=== PATIENT | male | born 1960 | race Caucasian/White ===

== ENCOUNTER 2019-08-14 23:49 | Emergency (ER) | payer OTHER, SELFPAY ==
[2019-08-14 23:50] VITALS: BP 177/108; PULSE 75; RESP 16; TEMP 36.9; O2SAT 97; BMI 37.8
--- NOTE | 2019-08-15 00:15 | RAD_ITS ---
STUDY: X-RAY - RIGHT HAND REASON FOR EXAM: Male, 58 years old. SPLINTER IN RT LATERAL 1ST DIGIT TECHNIQUE: 3 view(s) of the hand. COMPARISON: None. FINDINGS: Normal radiocarpal articulation. Normal distal radioulnar joint. Normal visualized carpal bones. Normal carpal articulations Normal carpometacarpal articulation of the thumb. Normal second through fifth carpometacarpal joints. Normal metacarpi. Normal metacarpophalangeal joint of the thumb. Normal interphalangeal joint of the thumb. Normal proximal and distal phalanges of the thumb. Normal metacarpophalangeal joints of the second through fifth fingers. Normal proximal and distal interphalangeal joints of the second through fifth fingers. Normal phalanges of the second through fifth fingers. The soft tissue structures are unremarkable. RAD/Hand Min 3 Views IMPRESSION: Normal x-ray examination of the hand. Electronically Signed: Ree Adan, at 1:31 EST Tel , Service support ,
--- NOTE | 2019-08-15 01:59 | ED.DEP ---
ED Disposition - Plan for ED Patient: Instructions: FOREIGN BODY, Soft Tissue [Not Removed] Prescriptions: Cephalexin [Keflex] 500 mg PO Q6 #40 capsule Referrals: Pepe Mo MD [Primary Care Provider] - Young Franz MD [STAFF PHYSICIAN] -
--- NOTE | 2019-08-15 02:13 | ED.DEP ---
ED Disposition - Plan for ED Patient: Instructions: FOREIGN BODY, Soft Tissue [Not Removed] Prescriptions: Cephalexin [Keflex] 500 mg PO Q6 #40 cap Prescription Printed Hydrocodone Bitart/Apap 5-325 [[place] 5MG-325MG] 1 tablet PO Q6H PRN PRN 3 Days #10 tablet PRN Reason: Pain Referrals: Young Franz MD [STAFF PHYSICIAN] - Pepe Mo MD [Primary Care Provider] -
[2019-08-15] MEDS: Cephalexin 250 MG Capsule 500 MG PO (02:20)
--- NOTE | 2019-08-15 02:21 | ED.DCSUM_ITS ---
- ER Visit Summary Date of Service: 08/15/19 Chief Complaint: Right thumb splinter History of Present Illness: The patient is a 58 M presenting with splinter to his right thumb. He was sanding wood and sustained a splinter injury to his right thumb. No other injuries. Last tetanus was approximately 4 years ago. Denies other complaints. Physical Examination: Vitals are stable. Patient is afebrile. Alert no acute distress. HEENT exam is unremarkable. Neck is supple. Lungs are clear and equal bilaterally. Heart is regular rate and rhythm. Extremities puncture to lateral right thumb. Tendon function normal. Normal cap refill. Skin is warm and dry. No focal neurologic deficit. Remainder of exam is unremarkable. Emergency Department Course and Treatment: Digital block was performed. Attempted splinter removal with splinter forceps. Splinter was partially removed. Incised with 11 blade and explored wound, probed for foreign body. Unable to visualize or palpate the foreign body. Wound was irrigated. He was given prescription for Keflex and [place]. Advised to follow-up with Dr. Franz. Advised return to ED if worsening complaints. Disposition: Discharge home Impression: Splinter right thumb, partial removal This note was generated with [employer] dictation software. It may contain incorrect words, spelling, and punctuation that were not noted in review of the chart prio r to signing ED Disposition - Plan for ED Patient: Instructions: FOREIGN BODY, Soft Tissue [Not Removed] Prescriptions: Cephalexin [Keflex] 500 mg PO Q6 #40 cap Prescription Printed Hydrocodone Bitart/Apap 5-325 [[place] 5MG-325MG] 1 tab PO Q6H PRN PRN 3 Days #10 tab PRN Reason: Pain Prescription Printed Referrals: Young Franz MD [STAFF PHYSICIAN] - Pepe Mo MD [Primary Care Provider] -
[2019-08-15 02:23] VITALS: RESP 14
== END 2019-08-15 02:24 | disposition home or self-care (01) ==
LOC: ED 08-15 00:19
PROVIDERS: Emergency Provider Emergency Medicine; Family Provider Internal Medicine; PCP Internal Medicine
DX: S60.351A Superficial foreign body of right thumb, initial encounter (principal); W45.8XXA Other foreign body or object entering through skin, initial encounter; Y93.89 Activity, other specified; Y92.9 Unspecified place or not applicable; Y99.9 Unspecified external cause status; I10 Essential (primary) hypertension; Z79.899 Other long term (current) drug therapy
CPT/HCPCS: 10120; 73130; 99283

== ENCOUNTER 2019-08-21 10:33 | Day surgery (SDC) | payer SELFPAY ==
[2019-08-18 16:21] VITALS: BMI 37.8
--- NOTE | 2019-08-20 19:58 | PCM.HP.BLA ---
History and Physical Date of Admission: 08/21/19 HISTORY OF PRESENT ILLNESS 58 year old man presents with an infected wooden foreign body right thumb that he sustained while sanding wood baseboard at home on 08/15/19. He went to the ED and the wooden foreign body was partially removed. Majority of it was still present. The area was cleansed, and he was discharged on Keflex. X-ray was done and no fracture was seen. Initially after the injury, he noted some redness surrounding the skin opening on the radial aspect which has improved since starting the Keflex, but is still persistent. He presents today for further evaluation and treatment. PAST MEDICAL HISTORY Arthritis Gout High blood pressure PAST SURGICAL HISTORY hernia repair ALLERGIES naproxen MEDICATIONS Cephalexin [Keflex] Lisinopril/Hydrochlorothiazide [Lisinopril-Hctz 20-12.5 mg Tab] glucosamine HCl turmeric FAMILY HISTORY Mother - Breast cancer, Hypertension, High cholesterol Father - Colon cancer, Diabetes, High cholesterol, Hypertension SOCIAL HISTORY Smoking Status: Never smoker alcohol intake: never substance use type: does not use REVIEW OF SYSTEMS General - Denies fever, fatigue, and weight loss. Eyes - Denies cataracts and glaucoma. ENT - Denies nasal congestion and sore throat. Endocrine - Denies excessive thirst and urination. Skin - Denies suspicious lesions and skin cancer. Has a wooden foreign body right thumb with some skin redness. Musculoskeletal - Has joint pain and joint stiffness. Denies weakness of muscles and joints, back pain, and arthritis. Neuro - Denies headaches. Cardiovascular - Denies chest pain, fatigue, and shortness of breath with exertion. Psych - Denies anxiety and depression. Respiratory - Denies chronic cough and shortness of breath. Has sleep apnea. Gastrointestinal - Denies nausea, vomiting, diarrhea, and constipation. Hematologic - Denies abnormal bruising and bleeding. Genitourinary - Denies hematuria and urinary frequency. PHYSICAL EXAMINATION General - Alert and Oriented. HEENT - PERRL. EOMI. Throat is clear. Neck - Supple and nontender. No cervical adenopathy. Lungs - Clear to auscultation. Heart - Regular rate and rhythm. Abdomen - Soft and nondistended. Extremities - FROM. No axillary adenopathy. Radial pulses are palpable. Flexion right thumb intact. No sensory deficits. There is a palpable foreign body right thumb entering at the radial aspect near IP joint and at the exit point there is nonviable skin from pressure from the wooden foreign body. The exit point is on the volar aspect just distal to the IP joint crease. Distance measures 3 cm. Some redness seen proximally at the entrance point radially. Mild tenderness to palpation. No purulent drainage seen. Fingers are warm with good capillary refill. Neuro - CN II-XII grossly intact. Psych - Normal mood and affect. ASSESSMENT 1. Retained infected wooden foreign body right thumb. 2. Cellulitis. 3. Open wound right thumb from retained infected wooden foreign body. 4. Injury at home. PLAN X-ray reviewed. Continue Keflex antibiotics. The retained foreign body needs to be removed in the operating room. It extends across the IP joint. With the redness present, I will need to open up the thumb from the entrance point to the exit point to make sure all of the retained foreign body has been removed. Will send some of the tissue to Microbiology for culture. A positive culture will necessitate antibiotic therapy. The wound may need to be left open and wound care started with Silver dressing changes daily. I doubt there is any injury to the flexor tendon or digital nerve. But if present will need repair. Depending on the healing process, if stiffness occurs, he may need OT for range of motion exercises, strengthening, and edema management. Surgery will be done under IV sedation and local digital tourniquet control on an outpatient basis. Patient was informed of the risks and complications of the procedure including alternatives to surgery. These were discussed with the patient personally. Patient voices understanding and wishes to proceed. Some of the risks and complications were included in a form from the [employer]. Some of the risks and complications that were discussed included but were not inclusive of failure to diagnose including symptom relief, pain, infection, numbness, stiffness, loss of digit, RSD (CRPS), need for further surgery, contracture, and wound healing problems. Will schedule the procedure in the next couple of days.
[2019-08-21 10:56] LABS: Hematocrit 45.7 % (40-54); Mean Corp Hgb Conc 32.8 g/dL (32-36); Mean Corpuscular Hgb 30.2 pg (27.0-32.0); Mean Platelet Vol. 9.7 fl (6.2-12.0); Platelet Count 184 K/mm3 (150-450); RBC Distribution Width CV 12.4 % (11.6-14.6); RBC Distribution Width SD 41.9 fl (35.1-43.9); Red Blood Count 4.97 M/mm3 (4.6-6.2); White Blood Count 6.2 K/mm3 (4.4-11.0)
[2019-08-21 10:58] VITALS: BP 134/79; PULSE 70; RESP 16; TEMP 36.7; O2SAT 96; BMI 37.5
[2019-08-21] MEDS: Lactated Ringers 1,000 ML 100 ML IV (11:09)
[2019-08-21 11:10] LABS: Anion Gap 2 (5-15); BUN 20 mg/dL (7-18); Calcium,Total 9.2 mg/dL (8.5-10.1); Chloride 109 mmol/L (98-107); Creatinine, Serum 1.11 mg/dL (0.70-1.30); EST Glomerular Filtration Rate 72 mL/min (>60); Est Glom Filt Rate - Afr Amer 87 mL/min (>60); Estimated Creatinine Clearance 76.32 ml/min; Glucose 114 mg/dL (74-106); Sodium Level 141 mmol/L (136-145)
--- NOTE | 2019-08-21 12:05 | SOF_PTH ---
PATIENT: FUNMI GRUBBS [place] [facility] [id number] AGE/SX: 58/M ROOM: RE08/21/[address]: Dr. Young Franz MD : 1960 BED: DIS: 08/21/2019 SPEC #: [id number] RECD: 08/24/19 07:27 STATUS: CHARLOTTE NEWTON #: [id number] JORGE: 08/21/19 12:[address]: Young Franz DEPT: SURGICAL PATHOLOGY RECD BY: Sarath Pina ENTERED: 08/24/19 08:58 SP TYPE: SOFT TISS OTHR DR: Dr. Pepe Mo MD Tissues: Thumb, NOS Procedures: Special Stain Group I Surgery Specimen Level III AFB Stain (control) GMS Stain (control) HEADER OPERATION: Surgical preparation, thumb with I & D PRE-OP DIAGNOSIS: Retained infected wooden foreign body right thumb; cellulitis TISSUE SUBMITTED: Right thumb debrided tissue MICROSCOPIC DIAGNOSIS Right thumb debrided tissue: Pieces of skin and underlying tissue with focal ulceration, acute and chronic inflammation and granulation tissue reaction. Special stains for acid fast bacilli and fungi are negative for organisms; matched controls are appropriate. MARIMAR:ernesto 08/25/19 MICROSCOPIC DESCRIPTION Slides are reviewed. GROSS DESCRIPTION Received in fixative is one container labeled with the patient's name and designated right thumb debrided tissue. The specimen consists of four variable sized pieces of skin and soft tissue measuring in aggregate 1 x 1 x 0.3 cm. Two larger pieces are bisected. Also present in the container are two needle-shaped pieces of wood measuring 0.8 x 1.5 cm in length and 0.1 cm in diameter. The entire soft tissue is submitted in one cassette. The pieces of foreign body are for gross identification only. / MARIMAR:ernesto 08/24/19 TC:2 CPT: 32719, 47158 x2
[2019-08-21] MEDS: Cefazolin 2 GM in 0.9% Normal Saline 100 ML IV (12:34)
[2019-08-21] MEDS: Mupirocin Ointment 22gm Tube 1 APPLIC (13:32)
--- NOTE | 2019-08-21 13:35 | OP.PCM_ITS ---
Report of Operation Date of Procedure: 08/21/19 Pre-Operative Diagnosis: 1. Retained infected wooden foreign body right thumb. 2. Cellulitis. 3. Injury at home. Post-Operative Diagnosis: Same. Surgery/Procedure Performed:: Surgical preparation right thumb with incision and drainage and excisional debridement open wounds with removal of retained infected wooden foreign body right thumb. Description of Surgical Findings:: 58 year old man presents with an infected wooden foreign body right thumb that he sustained while sanding wood baseboard at home on 08/15/19. He went to the ED and the wooden foreign body was partially removed. Majority of it was still present. The area was cleansed, and he was discharged on Keflex. X-ray was done and no fracture was seen. Initially after the injury, he noted some redness surrounding the skin opening on the radial aspect which has improved since starting the Keflex, but is still persistent. Patient was informed of the risks and complications of the procedure including alternatives to surgery. These were discussed with the patient personally. Patient voices understanding and wishes to proceed. Some of the risks and complications were included in a form from the [place] [employer]. Some of the risks and complications that were discussed included but were not inclusive of failure to diagnose including symptom relief, pain, infection, numbness, stiffness, loss of digit, RSD (CRPS), need for further surgery, contracture, and wound healing problems. Size of wound radial aspect right thumb - 0.8 x 0.7 cm. Size of wound volar aspect right thumb - 0.8 x 0.7 cm. Total tourniquet time - 32 minutes. family service assistant: None Type of Anesthesia:: Local MAC Specimen's removed: Retained infected wooden foreign body tissue right thumb to Pathology and Microbiology. Drains: None. Estimated Blood Loss (mL): 5 ml. Description of Procedure: Patient was taken to OR in supine position and was given IV sedation. The right hand was prepped and draped in the usual fashion. SCD's were placed for DVT prophylaxis. Perioperative antibiotics were given intravenously. The right thumb was infiltrated with xylocaine and epinephrine as a digital metacarpal block. After waiting 5 minutes for the anesthetic to take effect, I placed a digital tourniquet around the base of the right thumb. I made circular incisions around both wounds (radial aspect near the IP joint proximally and volar aspect just distal to the IP joint crease distally). Some fat necrosis was seen. No gross pus was seen. After making the incision, the wooden foreign body was seen. It was covered with exudate. I made an oblique incision to connect both wounds to examine the tract of the foreign body. Dissection was carried through the subcutaneous tissue was seen. Further dissection showed the radial digital nerve which was intact. The tract of the foreign body went underneath the radial digital nerve and over the flexor tendon sheath. No injury was noted to the flexor tendon. The edge of the tract extended more dorsally at ulnar edge of the flexor tendon sheath. The ulnar digital nerve was seen and was intact and was not involved with the foreign body. I explored the depth of the wound dorsally and no further foreign body was seen. The wounds were irrigated with saline. Tissue was sent to Microbiology for culture and to Pathology for analysis. He had been on Keflex preoperatively. Because of the exudate present, I will send him home on Augmentin. Since no pus was seen, will close the incision between both wound openings. The wound openings will not be closed and will be packed with Silver dressings to be done daily. The incision was closed primarily with 5-0 Nylon simple interrupted and vertical mattress interrupted sutures. The length of the suture closure was 1.5 cm. The dimensions of the wounds were 0.8 x 0.7 cm for each wound. The tourniquet was released after 32 minutes. Hemostasis was obtained with electrocautery and gauze compression. Silver dressings were applied into both wounds followed by 4 x4 gauze and 2 inch Aye wrap for compression. Patient tolerated the procedure well and was sent to PACU in satisfactory condition. Patient will be sent home on antibiotics and pain medication. He will keep his right hand elevated during the initial postoperative period. Patient will followup on Saturday for a dressing change and to instruct the patient on the Silver dressing changes. The sutures will be removed in 3 weeks. Grafts/Implants Used: None. - Complications None. - Admit VTE Documentation VTE Present on Admission: No VTE Mechan Device Prophylaxis: SCD's VTE Pharm Prophylaxis ordered?: No Code Visit Surgery Charges CPT - 85865 ICD-10 - S61.001A, S60.351A, M79.5, L03.011, Y93.E9 35981 S60.351A, M79.5, L03.011, S61.001A, Y93.E9
[2019-08-21 13:42] VITALS: BP 129/78; BP 134/79; PULSE 69; RESP 18; TEMP 36.3; O2SAT 98
[2019-08-21 13:45] VITALS: BP 132/75; BP 134/79; PULSE 68; RESP 16; O2SAT 98
[2019-08-21 13:50] VITALS: BP 134/79; BP 134/82; PULSE 68; RESP 16; O2SAT 97
--- NOTE | 2019-08-21 13:51 | DCINST_ITS ---
You will use the following diet at home:: No restrictions Discharge Activity: May not drive while taking narcotic pain medications., May Shower - wear plastic bag over right hand when showering., - - elevate right hand. no heavy lifting. May shower in (days): 1 - wear plastic bag over right hand when showering. May resume sexual activity in: No Restrictions Weight Bearing Status: Weight bearing as tolerated Lifting Restrictions: 20 lbs. Keep extremity elevated above heart level: Right Arm Call your doctor if your incision/area has: Continuous Slow Oozing, Sudden Increased Bleeding, Increased Pain/ Swelling, Increased Redness, Foul Smelling Discharge, Swelling at the incision site Call your doctor if you observe: Fever of 101 or Higher, Coldness, Increased Pain, Shortness of breath, Chest pain, Calf discomfort, Uncontrolled pain Suture Line Care: - - after operative dressing is removed in office, apply antibiotic ointment to suture line daily and proceed with Silver dressing changes daily to the wounds. Change Dressing in (Days):: 3 - will change in the office. Cleanse incision/area with: - - wear plastic bag over right hand when showering. Allergies/Adverse Reactions: Allergies naproxen Adverse Reaction (Verified 08/21/19 10:57) Itching Medications to take at Discharge Lisinopril/Hydrochlorothiazide [Lisinopril-Hctz 20-12.5 mg Tab] 1 ea PO DAILY 08/15/19 glucosamine HCl 1,500 mg tablet 1,500 mg PO DAILY 08/18/19 turmeric 400 mg capsule 400 mg PO DAILY cap 08/18/19 Amoxicillin/Potassium Clav [Augmentin 875-125 Tablet] 1 ea PO BID #30 tab 08/21/19 Oxycodone HCl/Acetaminophen [Percocet 5/325] 1 tablet PO Q4H PRN PRN 7 Days #40 tablet 08/21/19 The following prescriptions were given: Amoxicillin/Potassium Clav [Augmentin 875-125 Tablet] 1 ea PO BID #30 tab Transmission Status: [id number] Oxycodone HCl/Acetaminophen [Percocet 5/325] 1 tablet PO Q4H PRN PRN 7 Days #40 tablet PRN Reason: Pain Score 4-5/10 Transmission Status: Sent to [id number] Orders to be completed after discharge: 12 Lead EKG [CVS] Time Frame: 08/19/19, Facility: [facility], Location: Cardiovascular Services Basic Metabolic Profile (BMP) Time Frame: 08/19/19, Facility: [facility], Location: Laboratory CBC-Complete Blood Cnt No Diff Time Frame: 08/19/19, Facility: [facility], Location: Laboratory Primary Care Physician: Pepe Mo MD [Primary Care Provider] - Test Results: Test results from this visit will be discussed in further detail at your follow- up appointment, if applicable. Please Follow Up With: Young Franz MD When: saturday08/24/19. call [phone] for appt. Proposed Discharge Date: 08/21/19
[2019-08-21 13:57] VITALS: BP 131/81; BP 134/79; PULSE 66; RESP 16; TEMP 36.3; O2SAT 95
[2019-08-21 14:24] VITALS: BP 134/79
--- NOTE | 2019-08-21 14:25 | EKG12_ITS ---
Test Reason : PRE OP Blood Pressure : / mmHG Vent. Rate : 068 BPM Atrial Rate : 068 BPM P-R Int : 144 ms QRS Dur : 150 ms QT Int : 446 ms P-R-T Axes : 033 -73 006 degrees QTc Int : 474 ms Normal sinus rhythm Right bundle branch block Left anterior fascicular block Bifascicular block Abnormal ECG Confirmed by NATHANAEL BEAR, MONSE ([id number]), image editor SHARAD KENT ([id number]) on 08/24/2019 10:38:22 AM Referred By: Young Franz Confirmed By:MONSE HUFFMAN MD
== END 2019-08-21 14:33 | disposition home or self-care (01) ==
LOC: SDC 10:34 → AC 10:34
PROVIDERS: Family Provider Internal Medicine; PCP Internal Medicine; Referring Provider Surgery; Visit Provider Surgery
PROC: (CPT 15004; principal; 2019-08-21 11:55)
DX: S61.001A Unspecified open wound of right thumb without damage to nail, initial encounter (principal); S60.351A Superficial foreign body of right thumb, initial encounter; M79.5 Residual foreign body in soft tissue; L03.011 Cellulitis of right finger; Y93.E9 Activity, other interior property and clothing maintenance; Y92.009 Unspecified place in unspecified non-institutional (private) residence as the place of occurrence of the external cause; M19.90 Unspecified osteoarthritis, unspecified site; M10.9 Gout, unspecified; I45.10 Unspecified right bundle-branch block; I10 Essential (primary) hypertension; Z79.899 Other long term (current) drug therapy; Z82.49 Family history of ischemic heart disease and other diseases of the circulatory system; Z88.6 Allergy status to analgesic agent
CPT/HCPCS: 01810; 15004; 20525; 36415; 80048; 85027; 87070; 87075; 87077; 87102; 87186; 87205; 87206; 88304; 88305; 88312; 93005; J7120; J2405

== ENCOUNTER → 2019-11-04 08:48 | Outpatient (CLI) | payer SELFPAY ==
[2019-09-15 08:32] VITALS: BMI 37.5
[2019-11-04 10:33] LABS: ALB/GLOB Ratio 1.1 RATIO (0.9-2.4); AST(SGOT) 23 U/L (15-37); Alanine Aminotransfer ALT/SGPT 53 U/L (16-61); Albumin, Serum 3.5 g/dL (3.2-5.0); Alkaline Phosphatase 49 U/L (45-117); Anion Gap 7 (5-15); BUN 24 mg/dL (7-18); Calcium,Total 8.2 mg/dL (8.5-10.1); Chloride 102 mmol/L (98-107); Creatinine, Serum 1.09 mg/dL (0.70-1.30); EST Glomerular Filtration Rate 73 mL/min (>60); Est Glom Filt Rate - Afr Amer 89 mL/min (>60); Globulin 3.2 g/dL (2.2-4.2); Glucose 136 mg/dL (74-106); Potassium 3.6 mmol/L (3.5-5.1); Protein, Total 6.7 g/dL (6.4-8.2); Sodium Level 140 mmol/L (136-145)
== END ==
PROVIDERS: PCP Internal Medicine; Referring Provider Family Medicine; Visit Provider Family Medicine
DX: I10 Essential (primary) hypertension (principal)
CPT/HCPCS: 36415; 80053

== ENCOUNTER → 2019-12-07 16:10 | Outpatient (CLI) | payer SELFPAY ==
[2019-09-15 08:32] VITALS: BMI 37.5
== END ==
PROVIDERS: PCP Family Medicine; Referring Provider Family Medicine; Visit Provider Family Medicine
DX: M10.9 Gout, unspecified (principal)
CPT/HCPCS: 36415; 84550

== ENCOUNTER → 2019-12-28 07:56 | Outpatient (CLI) | payer SELFPAY ==
[2019-09-15 08:32] VITALS: BMI 37.5
--- NOTE | 2019-12-28 08:06 | US_ITS ---
STUDY: THYROID ULTRASOUND REASON FOR EXAM: Male, 59 years old. NODULE TECHNIQUE: Ultrasound evaluation of the thyroid was performed with real-time and static beltran-scale imaging. COMPARISON: None. FINDINGS: RIGHT LOBE: The right lobe of the thyroid gland measures 4.2 x 1.8 x 1.9 cm. There is a homogeneous echotexture. 2 separate solid/cystic nodules noted. Larger measures 1.4 x 0.9 x 1.1 cm. There is a solid hypoechoic inferior pole nodule measuring 1.0 x 0.7 x 0.9 cm. LEFT LOBE: The left lobe of the thyroid gland measures 4.2 x 1.7 x 1.7 cm. There is a homogeneous echotexture. There is a hypoechoic solid 0.8 x 0.7 x 0.6 cm nodule in the lower pole an isoechoic 0.8 x 0.9 x 0.6 cm nodule in the midportion. ISTHMUS: The isthmus measures 0.5 cm. There is a partially calcified 0.9 x 0.8 x 0.7 cm nodule in the left isthmus. The regional lymph nodes are normal. US/Thyroid IMPRESSION: Normal sized homogeneous thyroid gland with bilateral solid hypoechoic nodules. Recommend further evaluation with thyroid uptake study to assess the characteristics of the solid nodules. Sonography cannot distinguish between benign and aggressive nodules. Electronically Signed: Chris Wadsworth MD at 17:45 EDT , Service support ,
== END ==
PROVIDERS: PCP Family Medicine; Referring Provider Family Medicine; Visit Provider Family Medicine
DX: E04.2 Nontoxic multinodular goiter (principal)
CPT/HCPCS: 76536

== ENCOUNTER → 2020-01-13 11:01 | Outpatient (CLI) | payer SELFPAY ==
--- NOTE | 2020-01-13 | ASPS_PTH ---
PATIENT: FUNMI GRUBBS LOC: [facility] U#:[id number] AGE/SX: 64/M ROOM: RE01/13/[address]: Dr. Dwayne Back MD : 1960 BED: DIS: SPEC #: [id number] RECD: 01/13/20 14:03 STATUS: CHARLOTTE NEWTON #: [id number] JORGE: 01/13/20 00:[address]: Dwayne Back DEPT: CYTOLOGY RECD BY: Edvin Nichole Tissues: A - Thyroid gland, NOS B - Thyroid gland, NOS Procedures: Special Stain Group II Cytology Other HEADER OPERATION: Ultrasound-guided fine needle aspiration bilateral thyroid PRE-OP DIAGNOSIS: Multinodular goiter TISSUE SUBMITTED: A - Right thyroid slides x11, B - Left thyroid slides x10 DIAGNOSIS CYTOLOGY A. Fine needle aspiration, right thyroid nodule (smears): Adequate for evaluation. Consistent with benign follicular/colloid nodule. B. Fine needle aspiration, left thyroid nodule (smears): Adequate for evaluation. Consistent with benign follicular/colloid nodule. AM:ernesto 01/14/20 CYTOLOGY STUDY Slides are reviewed. CYTOLOGY GROSS A - Received are 11 smears labeled with the patient's name and designated per the requisition as right thyroid. Submitted for staining. B - Received are 10 smears labeled with the patient's name and designated per the requisition as left thyroid. Submitted for staining. / ernesto 01/13/20 TC:5 CPT: 25501 x2
[2020-01-13 08:03] VITALS: BMI 37.5
== END ==
PROVIDERS: PCP Family Medicine; Visit Provider Family Medicine
DX: E04.2 Nontoxic multinodular goiter (principal)
CPT/HCPCS: 88161; 88313

== ENCOUNTER → 2020-01-18 10:42 | Outpatient (CLI) | payer SELFPAY ==
[2020-01-13 08:03] VITALS: BMI 37.5
--- NOTE | 2020-01-18 10:49 | VDLE_ITS ---
Reason For Study: Swelling RIGHT LEFT GSV is normal. CFV is compressible, spontaneous, phasic, CFV is compressible, spontaneous, phasic, competent, and demonstrates normal competent and demonstrates normal augmentation. augmentation. FV is compressible, spontaneous, phasic, competent and demonstrates normal augmentation. Acute deep vein thrombosis is noted in the PopV, noted extending in to distal FV, T/PTrunk, PTV, PeroV, SoleusV. Procedure Exam performed in department. A preliminary report was called and/or faxed to [facility]. Interpretation Summary Acute deep vein thrombosis is noted in the distal right femoral vein. Acute deep vein thrombosis is noted in the right popliteal vein. Acute deep vein thrombosis is noted in the right tibio-peroneal trunk. Acute deep vein thrombosis is noted in the right posterior tibial vein. Acute deep vein thrombosis is noted in the right peroneal vein. Acute deep vein thrombosis is noted in the right soleus vein. The remainder of the right lower extremity deep venous system is patent and compressible. The right great saphenous vein is patent and compressible. Ordering Physician: Oumou Onofre Referring Physician: Dwayne Back Performed By: Lalitha Grant RVT
== END ==
PROVIDERS: PCP Family Medicine; Referring Provider Nurse Practitioner Adult Health; Visit Provider Nurse Practitioner Adult Health
DX: M79.89 Other specified soft tissue disorders (principal)
CPT/HCPCS: 93971

== ENCOUNTER → 2020-04-19 08:12 | Outpatient (CLI) | payer SELFPAY ==
[2020-01-13 08:03] VITALS: BMI 37.5
[2020-04-19 10:33] LABS: Hemoglobin A1c 6.6 % (3.8-5.6)
[2020-04-19 10:37] LABS: Anion Gap 6 (5-15); BUN 18 mg/dL (7-18); Calcium,Total 8.6 mg/dL (8.5-10.1); Chloride 104 mmol/L (98-107); Creatinine, Serum 1.06 mg/dL (0.70-1.30); EST Glomerular Filtration Rate 76 mL/min (>60); Est Glom Filt Rate - Afr Amer 92 mL/min (>60); Glucose 152 mg/dL (74-106); Sodium Level 141 mmol/L (136-145)
== END ==
PROVIDERS: PCP Family Medicine; Referring Provider Family Medicine; Visit Provider Family Medicine
DX: I10 Essential (primary) hypertension (principal); R73.02 Impaired glucose tolerance (oral)
CPT/HCPCS: 36415; 80048; 83036

== ENCOUNTER → 2020-05-09 17:52 | Outpatient (CLI) | payer SELFPAY ==
[2020-01-13 08:03] VITALS: BMI 37.5
[2020-05-09 18:23] LABS: Source- Body Fluid SYNOVIAL
[2020-05-09 18:24] LABS: Body Fluid QC Type(s) BF2Q
[2020-05-10 15:36] LABS: Pathologist Review Reviewed
== END ==
PROVIDERS: Visit Provider Podiatrist
DX: M10.9 Gout, unspecified (principal)
CPT/HCPCS: 89060

== ENCOUNTER → 2020-08-04 08:48 | Outpatient (CLI) | payer SELFPAY ==
[2020-01-13 08:03] VITALS: BMI 37.5
[2020-08-04 10:15] LABS: Absolute Lymphocyte Count 1.59 X10^3/uL (0.83-4.51); Absolute Neutrophil Count 3.5 X10^3/uL (2.0-7.7); Basophil# 0.03 X10^3/uL; Basophil% 0.5 % (0-1); Eosinophil# 0.12 X10^3/uL; Eosinophils% 2.1 % (0-5); Hematocrit 41.8 % (40-54); Hemoglobin 13.6 g/dL (13.0-16.5); Lymphocyte # 1.59 X10^3/ul (4.0); Lymphocyte % 27.9 % (19-41); Mean Corp Hgb Conc 32.5 g/dL (32-36); Mean Corpuscular Hgb 29.5 pg (27.0-32.0); Mean Corpuscular Volume 90.7 fL (80-94); Mean Platelet Vol. 10.3 fl (6.2-12.0); Monocyte# 0.47 X10^3/uL; Monocyte% 8.2 % (0-10); NRBC Flagged by Analyzer 0 % (0-5); Neutrophil # 3.46 X10^3/uL (2.7-7.7); Neutrophil % 60.8 % (47-70); Platelet Count 199 K/mm3 (150-450); RBC Distribution Width CV 12.5 % (11.6-14.6); RBC Distribution Width SD 41.2 fl (35.1-43.9); Red Blood Count 4.61 M/mm3 (4.6-6.2); White Blood Count 5.7 K/mm3 (4.4-11.0)
[2020-08-04 10:28] LABS: ALB/GLOB Ratio 1.2 RATIO (0.9-2.4); AST(SGOT) 24 U/L (15-37); Alanine Aminotransfer ALT/SGPT 53 U/L (16-61); Albumin, Serum 3.6 g/dL (3.2-5.0); Alkaline Phosphatase 55 U/L (45-117); Anion Gap 5 (5-15); BUN 21 mg/dL (7-18); Calcium,Total 8.5 mg/dL (8.5-10.1); Chloride 106 mmol/L (98-107); Cholesterol 124 mg/dL (200); Creatinine, Serum 1.05 mg/dL (0.70-1.30); EST Glomerular Filtration Rate 76 mL/min (>60); Est Glom Filt Rate - Afr Amer 92 mL/min (>60); Globulin 3.1 g/dL (2.2-4.2); Glucose 148 mg/dL (74-106); High Density Lipoprotein 47 mg/dL; Potassium 3.6 mmol/L (3.5-5.1); Protein, Total 6.7 g/dL (6.4-8.2); Sodium Level 140 mmol/L (136-145); Triglycerides 91 mg/dL; Very Low Density Lipoprotein 18 mg/dL (5-40)
[2020-08-04 10:51] LABS: Hemoglobin A1c 5.7 % (3.8-5.6)
== END ==
PROVIDERS: PCP Family Medicine; Referring Provider Family Medicine; Visit Provider Family Medicine
DX: I10 Essential (primary) hypertension (principal); E11.9 Type 2 diabetes mellitus without complications
CPT/HCPCS: 36415; 80053; 80061; 83036; 85025

== ENCOUNTER → 2020-08-09 15:07 | Outpatient (CLI) | payer SELFPAY ==
[2020-01-13 08:03] VITALS: BMI 37.5
--- NOTE | 2020-08-09 15:09 | RAD_ITS ---
STUDY: X-RAY - RIGHT KNEE REASON FOR EXAM: Male, 59 years old. arthritis, bilateral knee pain TECHNIQUE: 3 view(s) of the knee. COMPARISON: None. FINDINGS: Normal visualized distal femur. Normal visualized proximal tibia and fibula. Normal proximal tibiofibular articulation. There is mild degenerative arthrosis of the medial femorotibial compartment. Normal lateral femorotibial compartment. There is mild degenerative arthrosis of the patellofemoral articulation. The soft tissue structures are unremarkable. RAD/Knee 3 Views IMPRESSION: Mild degenerative changes. Electronically Signed: Beni Mcneil MD (Brooks) at 11:17 EST , Service support ,
--- NOTE | 2020-08-09 15:15 | RAD_ITS ---
STUDY: X-RAY - LEFT KNEE REASON FOR EXAM: Male, 59 years old. arthritis, bilateral knee pain TECHNIQUE: 3 view(s) of the knee. COMPARISON: None. FINDINGS: Normal visualized distal femur. Normal visualized proximal tibia and fibula. Normal proximal tibiofibular articulation. There is moderate degenerative arthrosis of the medial femorotibial compartment with moderate joint space narrowing. Normal lateral femorotibial compartment. There is mild degenerative arthrosis of the patellofemoral articulation. There is a soft tissue prominence in the suprapatellar region suggesting a small volume joint effusion. The soft tissue structures are unremarkable. RAD/Knee 3 Views IMPRESSION: Degenerative arthrosis. Trace joint effusion. Electronically Signed: Beni Mcneil MD (Brooks) at 11:15 EST , Service support ,
== END ==
PROVIDERS: PCP Family Medicine; Referring Provider Family Medicine; Visit Provider Family Medicine
DX: M19.90 Unspecified osteoarthritis, unspecified site (principal)
CPT/HCPCS: 73562

== ENCOUNTER → 2020-11-28 14:22 | Outpatient (CLI) | payer SELFPAY ==
[2020-01-13 08:03] VITALS: BMI 37.5
[2020-11-28 15:38] LABS: Absolute Lymphocyte Count 1.85 X10^3/uL (0.83-4.51); Absolute Neutrophil Count 4.7 X10^3/uL (2.0-7.7); Basophil# 0.04 X10^3/uL; Basophil% 0.6 % (0-1); Eosinophils% 1.4 % (0-5); Hematocrit 46.4 % (40-54); Hemoglobin 15.2 g/dL (13.0-16.5); Lymphocyte # 1.85 X10^3/ul (0.83-4.51); Lymphocyte % 25.4 % (19-41); Mean Corp Hgb Conc 32.8 g/dL (32-36); Mean Corpuscular Hgb 30.2 pg (27.0-32.0); Mean Corpuscular Volume 92.1 fL (80-94); Mean Platelet Vol. 10.5 fl (6.2-12.0); Monocyte# 0.53 X10^3/uL; Monocyte% 7.3 % (0-10); NRBC Flagged by Analyzer 0 % (0-5); Neutrophil # 4.71 X10^3/uL (2.7-7.7); Neutrophil % 64.7 % (47-70); Platelet Count 242 K/mm3 (150-450); RBC Distribution Width CV 12.9 % (11.6-14.6); RBC Distribution Width SD 43.1 fl (35.1-43.9); Red Blood Count 5.04 M/mm3 (4.6-6.2); White Blood Count 7.3 K/mm3 (4.4-11.0)
[2020-11-28 16:03] LABS: Hemoglobin A1c 5.9 % (3.8-5.6)
[2020-11-28 16:13] LABS: ALB/GLOB Ratio 1.1 RATIO (0.9-2.4); AST(SGOT) 28 U/L (15-37); Alanine Aminotransfer ALT/SGPT 71 U/L (16-61); Albumin, Serum 3.9 g/dL (3.2-5.0); Alkaline Phosphatase 66 U/L (45-117); Anion Gap 3 (5-15); BUN 17 mg/dL (7-18); BUN/Creat Ratio 14.7 RATIO (10-20); Calcium,Total 8.9 mg/dL (8.5-10.1); Chloride 102 mmol/L (98-107); Cholesterol 158 mg/dL (200); Creatinine, Serum 1.16 mg/dL (0.70-1.30); EST Glomerular Filtration Rate 68 mL/min (>60); Est Glom Filt Rate - Afr Amer 82 mL/min (>60); Globulin 3.6 g/dL (2.2-4.2); Glucose 118 mg/dL (74-106); High Density Lipoprotein 52 mg/dL; Potassium 3.2 mmol/L (3.5-5.1); Protein, Total 7.5 g/dL (6.4-8.2); Sodium Level 138 mmol/L (136-145); Triglycerides 187 mg/dL; Very Low Density Lipoprotein 37 mg/dL (5-40)
[2020-11-28 18:13] LABS: Microalbumin,Random Urine 6.8 mg/L (NO RANGE EST.); Microalbumin:Creatinine Ratio 4.5 mg/g CRE (<30 mg/g CRE)
== END ==
PROVIDERS: PCP Family Medicine; Visit Provider Family Medicine
DX: I10 Essential (primary) hypertension (principal); E11.9 Type 2 diabetes mellitus without complications
CPT/HCPCS: 36415; 80053; 80061; 82043; 82570; 83036; 85025

== ENCOUNTER → 2020-12-19 15:30 | Outpatient (CLI) | payer SELFPAY ==
[2020-01-13 08:03] VITALS: BMI 37.5
[2020-12-19 18:13] LABS: Potassium 3.7 mmol/L (3.5-5.1)
== END ==
PROVIDERS: PCP Family Medicine; Referring Provider Family Medicine; Visit Provider Family Medicine
DX: E87.6 Hypokalemia (principal)
CPT/HCPCS: 36415; 84132

== ENCOUNTER → 2021-04-05 08:45 | Outpatient (CLI) | payer SELFPAY ==
[2021-04-05 09:54] LABS: Absolute Lymphocyte Count 1.54 X10^3/uL (0.83-4.51); Absolute Neutrophil Count 3.4 X10^3/uL (2.0-7.7); Basophil# 0.02 X10^3/uL; Basophil% 0.4 % (0-1); Eosinophil# 0.09 X10^3/uL; Eosinophils% 1.6 % (0-5); Hematocrit 44.6 % (40-54); Hemoglobin 14.6 g/dL (13.0-16.5); Lymphocyte # 1.54 X10^3/ul (0.83-4.51); Lymphocyte % 27.5 % (19-41); Mean Corp Hgb Conc 32.7 g/dL (32-36); Mean Corpuscular Hgb 29.5 pg (27.0-32.0); Mean Corpuscular Volume 90.1 fL (80-94); Mean Platelet Vol. 10.4 fl (6.2-12.0); Monocyte# 0.49 X10^3/uL; Monocyte% 8.8 % (0-10); NRBC Flagged by Analyzer 0 % (0-5); Neutrophil # 3.43 X10^3/uL (2.7-7.7); Neutrophil % 61.3 % (47-70); Platelet Count 227 K/mm3 (150-450); RBC Distribution Width CV 12.1 % (11.6-14.6); RBC Distribution Width SD 39.4 fl (35.1-43.9); Red Blood Count 4.95 M/mm3 (4.6-6.2); White Blood Count 5.6 K/mm3 (4.4-11.0)
[2021-04-05 10:16] LABS: AST(SGOT) 30 U/L (15-37); Alanine Aminotransfer ALT/SGPT 71 U/L (16-61); Albumin, Serum 3.7 g/dL (3.2-5.0); Alkaline Phosphatase 63 U/L (45-117); Anion Gap 3 (5-15); BUN 18 mg/dL (7-18); BUN/Creat Ratio 15.7 RATIO (10-20); Calcium,Total 8.8 mg/dL (8.5-10.1); Chloride 103 mmol/L (98-107); Cholesterol 143 mg/dL (200); Creatinine, Serum 1.15 mg/dL (0.70-1.30); EST Glomerular Filtration Rate 69 mL/min (>60); Est Glom Filt Rate - Afr Amer 83 mL/min (>60); Globulin 3.7 g/dL (2.2-4.2); Glucose 128 mg/dL (74-106); High Density Lipoprotein 51 mg/dL; Protein, Total 7.4 g/dL (6.4-8.2); Sodium Level 137 mmol/L (136-145); Triglycerides 92 mg/dL; Very Low Density Lipoprotein 18 mg/dL (5-40)
[2021-04-05 10:20] LABS: Hemoglobin A1c 6.1 % (3.8-5.6)
== END ==
PROVIDERS: PCP Family Medicine; Referring Provider Family Medicine; Visit Provider Family Medicine
DX: E11.59 Type 2 diabetes mellitus with other circulatory complications (principal)
CPT/HCPCS: 36415; 80053; 80061; 83036; 85025

== ENCOUNTER → 2021-12-14 | Outpatient (CLI) | payer SELFPAY ==
[2021-12-14 10:44] LABS: Hemoglobin A1c 6.4 % (3.8-5.6)
[2021-12-14 11:30] LABS: ALB/GLOB Ratio 1.1 RATIO (0.9-2.4); AST(SGOT) 22 U/L (15-37); Alanine Aminotransfer ALT/SGPT 57 U/L (16-61); Albumin, Serum 3.8 g/dL (3.2-5.0); Alkaline Phosphatase 66 U/L (45-117); Anion Gap 6 (5-15); BUN 25 mg/dL (7-18); BUN/Creat Ratio 23.4 RATIO (10-20); Calcium,Total 9.2 mg/dL (8.5-10.1); Chloride 104 mmol/L (98-107); Creatinine, Serum 1.07 mg/dL (0.70-1.30); EST Glomerular Filtration Rate 74 mL/min (>60); Est Glom Filt Rate - Afr Amer 90 mL/min (>60); Globulin 3.4 g/dL (2.2-4.2); Glucose 219 mg/dL (74-106); Potassium 4.3 mmol/L (3.5-5.1); Protein, Total 7.2 g/dL (6.4-8.2); Sodium Level 139 mmol/L (136-145)
== END | disposition home or self-care (01) ==
LOC: MFPLAB 08:35
PROVIDERS: PCP Family Medicine; Referring Provider Family Medicine; Visit Provider Family Medicine
DX: E11.9 Type 2 diabetes mellitus without complications (principal)
CPT/HCPCS: 36415; 80053; 83036

== ENCOUNTER → 2022-04-19 | Outpatient (CLI) | payer SELFPAY ==
[2022-04-19 10:07] LABS: Absolute Lymphocyte Count 1.72 X10^3/uL (0.83-4.51); Basophil# 0.03 X10^3/uL; Basophil% 0.5 % (0-1); Eosinophil# 0.12 X10^3/uL; Eosinophils% 1.9 % (0-5); Hematocrit 45.6 % (40-54); Hemoglobin 15.2 g/dL (13.0-16.5); Lymphocyte # 1.72 X10^3/ul (0.83-4.51); Lymphocyte % 26.8 % (19-41); Mean Corp Hgb Conc 33.3 g/dL (32-36); Mean Corpuscular Hgb 30.1 pg (27.0-32.0); Mean Corpuscular Volume 90.3 fL (80-94); Mean Platelet Vol. 10.2 fl (6.2-12.0); Monocyte# 0.52 X10^3/uL; Monocyte% 8.1 % (0-10); NRBC Flagged by Analyzer 0 % (0-5); Neutrophil % 62.2 % (47-70); Platelet Count 191 K/mm3 (150-450); RBC Distribution Width CV 12.2 % (11.6-14.6); Red Blood Count 5.05 M/mm3 (4.6-6.2); White Blood Count 6.4 K/mm3 (4.4-11.0)
[2022-04-19 10:17] LABS: Hemoglobin A1c 6.2 % (3.8-5.6)
[2022-04-19 10:21] LABS: AST(SGOT) 24 U/L (15-37); Alanine Aminotransfer ALT/SGPT 57 U/L (16-61); Albumin, Serum 3.6 g/dL (3.2-5.0); Alkaline Phosphatase 65 U/L (45-117); Anion Gap 8 (5-15); BUN 15 mg/dL (7-18); BUN/Creat Ratio 13.2 RATIO (10-20); Calcium,Total 8.8 mg/dL (8.5-10.1); Chloride 102 mmol/L (98-107); Cholesterol 140 mg/dL (200); Creatinine, Serum 1.14 mg/dL (0.70-1.30); EST Glomerular Filtration Rate 69 mL/min (>60); Est Glom Filt Rate - Afr Amer 84 mL/min (>60); Globulin 3.6 g/dL (2.2-4.2); Glucose 137 mg/dL (74-106); High Density Lipoprotein 48 mg/dL; Potassium 3.7 mmol/L (3.5-5.1); Protein, Total 7.2 g/dL (6.4-8.2); Sodium Level 140 mmol/L (136-145); Thyroid Stim Hormone (TSH) 1.79 uIU/mL (0.358-3.74); Triglycerides 115 mg/dL; Uric Acid 8.9 mg/dL (3.5-7.2); Very Low Density Lipoprotein 23 mg/dL (5-40)
== END | disposition home or self-care (01) ==
LOC: MFPLAB 08:17
PROVIDERS: PCP Family Medicine; Referring Provider Family Medicine; Visit Provider Family Medicine
DX: E11.9 Type 2 diabetes mellitus without complications (principal)
CPT/HCPCS: 36415; 80053; 80061; 83036; 84443; 84550; 85025

== ENCOUNTER → 2022-12-12 | Outpatient (CLI) | payer SELFPAY ==
[2022-12-12 10:00] LABS: Absolute Lymphocyte Count 1.56 X10^3/uL (0.83-4.51); Absolute Neutrophil Count 4.3 X10^3/uL (2.0-7.7); Basophil# 0.03 X10^3/uL; Basophil% 0.5 % (0-1); Eosinophil# 0.11 X10^3/uL; Eosinophils% 1.7 % (0-5); Hematocrit 46.2 % (40-54); Hemoglobin 15.5 g/dL (13.0-16.5); Lymphocyte # 1.56 X10^3/ul (0.83-4.51); Lymphocyte % 23.9 % (19-41); Mean Corp Hgb Conc 33.5 g/dL (32-36); Mean Corpuscular Hgb 29.9 pg (27.0-32.0); Mean Corpuscular Volume 89.2 fL (80-94); Mean Platelet Vol. 10.6 fl (6.2-12.0); Monocyte# 0.46 X10^3/uL; NRBC Flagged by Analyzer 0 % (0-5); Neutrophil # 4.33 X10^3/uL (2.7-7.7); Neutrophil % 66.3 % (47-70); Platelet Count 207 K/mm3 (150-450); RBC Distribution Width CV 12.1 % (11.6-14.6); RBC Distribution Width SD 39.5 fl (35.1-43.9); Red Blood Count 5.18 M/mm3 (4.6-6.2); White Blood Count 6.5 K/mm3 (4.4-11.0)
[2022-12-12 10:17] LABS: ALB/GLOB Ratio 1.1 RATIO (0.9-2.4); AST(SGOT) 38 U/L (15-37); Alanine Aminotransfer ALT/SGPT 97 U/L (16-61); Albumin, Serum 3.8 g/dL (3.2-5.0); Alkaline Phosphatase 79 U/L (45-117); Anion Gap 6 (5-15); BUN 20 mg/dL (7-18); BUN/Creat Ratio 16.9 RATIO (10-20); Calcium,Total 9.2 mg/dL (8.5-10.1); Chloride 101 mmol/L (98-107); Cholesterol 151 mg/dL (200); Creatinine, Serum 1.18 mg/dL (0.70-1.30); EST Glomerular Filtration Rate 66 mL/min (>60); Est Glom Filt Rate - Afr Amer 80 mL/min (>60); Globulin 3.6 g/dL (2.2-4.2); Glucose 316 mg/dL (74-106); High Density Lipoprotein 50 mg/dL; Potassium 3.7 mmol/L (3.5-5.1); Protein, Total 7.4 g/dL (6.4-8.2); Sodium Level 136 mmol/L (136-145); Triglycerides 118 mg/dL; Very Low Density Lipoprotein 24 mg/dL (5-40)
[2022-12-12 10:19] LABS: Hemoglobin A1c 8.5 % (3.8-5.6)
[2022-12-12 10:20] LABS: Microalbumin,Random Urine 86.1 mg/L (NO RANGE EST.); Microalbumin:Creatinine Ratio 38.6 mg/g CRE (<30 mg/g CRE)
== END | disposition home or self-care (01) ==
LOC: MFPLAB 08:37
PROVIDERS: PCP Family Medicine; Visit Provider Family Medicine
DX: E11.9 Type 2 diabetes mellitus without complications (principal)
CPT/HCPCS: 36415; 80053; 80061; 82043; 82570; 83036; 85025

== ENCOUNTER → 2022-12-17 | Outpatient (CLI) | payer SELFPAY ==
--- NOTE | 2022-12-17 19:30 | US_ITS ---
STUDY: THYROID ULTRASOUND REASON FOR EXAM: Male, 62 years old. MULT NODULAR THYROID TECHNIQUE: Ultrasound evaluation of the thyroid was performed with real-time and static beltran-scale imaging. COMPARISON: Comparison is made with prior study dated December 28, 2019. FINDINGS: RIGHT LOBE: The right lobe of the thyroid gland measures 4.1 cm x 1.5 cm and 1.9 cm. There is a homogeneous echotexture. Multiple small solid and cystic nodules are seen throughout the right lobe. The largest measures 1.1 cm x 1.2 cm x 0.9 cm. This is hypoechoic with the calcifications within it. This is unchanged. LEFT LOBE: The left lobe of the thyroid gland measures 4.1 cm x 1.6 cm x 1.9 cm. There is a homogeneous echotexture. Several small solid nodules are seen. The largest measures 1 cm x 0.8 cm x 0.7 cm. Scattered calcifications are seen within it. This is in the lower pole. ISTHMUS: The isthmus measures 2.7 mm. Stable 1 cm x 1 signed by 0.7 cm partially calcified nodule in the left side of the isthmus. The regional lymph nodes are normal. US/Thyroid IMPRESSION: Several small solid and cystic nodules are seen in both lobes of the thyroid gland as described. There has been essentially no change. Electronically Signed: Haroldo Hess MD at 9:48 EDT ,
== END | disposition home or self-care (01) ==
PROVIDERS: PCP Family Medicine; Visit Provider Family Medicine
DX: E04.2 Nontoxic multinodular goiter (principal)
CPT/HCPCS: 76536

== ENCOUNTER 2023-03-15 08:29 | Outpatient (CLI) | payer SELFPAY ==
[2023-03-15 09:52] LABS: Absolute Lymphocyte Count 1.52 X10^3/uL (0.83-4.51); Absolute Neutrophil Count 4.7 X10^3/uL (2.0-7.7); Basophil# 0.02 X10^3/uL; Basophil% 0.3 % (0-1); Eosinophils% 1.5 % (0-5); Hematocrit 45.1 % (40-54); Lymphocyte # 1.52 X10^3/ul (0.83-4.51); Lymphocyte % 22.6 % (19-41); Mean Corp Hgb Conc 33.3 g/dL (32-36); Mean Corpuscular Hgb 30.6 pg (27.0-32.0); Mean Platelet Vol. 10.2 fl (6.2-12.0); Monocyte# 0.41 X10^3/uL; Monocyte% 6.1 % (0-10); NRBC Flagged by Analyzer 0 % (0-5); Neutrophil # 4.65 X10^3/uL (2.7-7.7); Neutrophil % 69.1 % (47-70); Platelet Count 197 K/mm3 (150-450); RBC Distribution Width CV 12.4 % (11.6-14.6); RBC Distribution Width SD 42.2 fl (35.1-43.9); White Blood Count 6.7 K/mm3 (4.4-11.0)
[2023-03-15 10:07] LABS: ALB/GLOB Ratio 0.9 RATIO (0.9-2.4); AST(SGOT) 23 U/L (15-37); Alanine Aminotransfer ALT/SGPT 52 U/L (16-61); Albumin, Serum 3.6 g/dL (3.2-5.0); Alkaline Phosphatase 64 U/L (45-117); Anion Gap 6 (5-15); BUN 20 mg/dL (7-18); BUN/Creat Ratio 17.4 RATIO (10-20); Calcium,Total 8.8 mg/dL (8.5-10.1); Chloride 104 mmol/L (98-107); Cholesterol 146 mg/dL (200); Creatinine, Serum 1.15 mg/dL (0.70-1.30); EST Glomerular Filtration Rate 68 mL/min (>60); Est Glom Filt Rate - Afr Amer 83 mL/min (>60); Globulin 3.8 g/dL (2.2-4.2); Glucose 141 mg/dL (74-106); High Density Lipoprotein 57 mg/dL; Potassium 4.2 mmol/L (3.5-5.1); Protein, Total 7.4 g/dL (6.4-8.2); Sodium Level 139 mmol/L (136-145); Triglycerides 68 mg/dL; Very Low Density Lipoprotein 14 mg/dL (5-40)
[2023-03-15 10:16] LABS: Hemoglobin A1c 6.3 % (3.8-5.6)
[2023-03-15 10:46] LABS: Microalbumin,Random Urine 26.8 mg/L (NO RANGE EST.); Microalbumin:Creatinine Ratio 18.4 mg/g CRE (<30 mg/g CRE)
== END 2023-03-15 23:59 | disposition home or self-care (01) ==
LOC: MFPLAB 08:29
PROVIDERS: PCP Family Medicine; Visit Provider Family Medicine
DX: E11.9 Type 2 diabetes mellitus without complications (principal)
CPT/HCPCS: 36415; 80053; 80061; 82043; 82570; 83036; 85025

== ENCOUNTER → 2023-04-19 | Outpatient (CLI) | payer SELFPAY ==
--- NOTE | 2023-04-19 13:02 | VDLE_ITS ---
Version 2 Reason For Study: RLE Pain RIGHT GSV is normal. CFV is compressible, spontaneous, phasic, competent and demonstrates normal augmentation. FV is compressible, spontaneous, phasic, competent and demonstrates normal augmentation. POP V is compressible, spontaneous, phasic, competent and demonstrates normal augmentation. Rt T/P Trunk is partially compressible with bright intraluminal echoes consistent with chronic DVT. PTV is compressible. RT PerV is compressible. Procedure This is a venous duplex using B-mode, color flow and spectral Doppler. Exam performed in department. The study was technically difficult. Difficult to visualize calf veins RLE. A preliminary report was called and/or faxed to Dr. Back. VL/Venous Duplex US, Unilateral Interpretation Summary Chronic deep vein thrombosis is noted in the right tibio-peroneal trunk. Ordering Physician: Dwayne Back Referring Physician: Dwayne Back Performed By: Ana Maria Durbin, SREEKANTH, RVT
== END | disposition home or self-care (01) ==
PROVIDERS: PCP Family Medicine; Referring Provider Family Medicine; Visit Provider Family Medicine
DX: M79.604 Pain in right leg (principal)
CPT/HCPCS: 93971

== ENCOUNTER → 2023-07-17 | Outpatient (CLI) | payer SELFPAY ==
[2023-07-17 11:03] LABS: Absolute Lymphocyte Count 1.99 X10^3/uL (0.83-4.51); Absolute Neutrophil Count 4.7 X10^3/uL (2.0-7.7); Basophil# 0.05 X10^3/uL; Basophil% 0.7 % (0-1); Eosinophil# 0.13 X10^3/uL; Eosinophils% 1.7 % (0-5); Hematocrit 46.9 % (40-54); Hemoglobin 14.9 g/dL (13.0-16.5); Lymphocyte # 1.99 X10^3/ul (0.83-4.51); Lymphocyte % 26.6 % (19-41); Mean Corp Hgb Conc 31.8 g/dL (32-36); Mean Corpuscular Hgb 29.3 pg (27.0-32.0); Mean Corpuscular Volume 92.1 fL (80-94); Mean Platelet Vol. 10.4 fl (6.2-12.0); Monocyte# 0.55 X10^3/uL; Monocyte% 7.4 % (0-10); NRBC Flagged by Analyzer 0 % (0-5); Neutrophil # 4.73 X10^3/uL (2.7-7.7); Neutrophil % 63.2 % (47-70); Platelet Count 238 K/mm3 (150-450); RBC Distribution Width CV 12.6 % (11.6-14.6); RBC Distribution Width SD 42.9 fl (35.1-43.9); Red Blood Count 5.09 M/mm3 (4.6-6.2); White Blood Count 7.5 K/mm3 (4.4-11.0)
[2023-07-17 11:32] LABS: ALB/GLOB Ratio 0.9 RATIO (0.9-2.4); AST(SGOT) 23 U/L (15-37); Alanine Aminotransfer ALT/SGPT 51 U/L (16-61); Albumin, Serum 3.6 g/dL (3.2-5.0); Alkaline Phosphatase 63 U/L (45-117); Anion Gap 4 (5-15); BUN 21 mg/dL (7-18); BUN/Creat Ratio 18.1 RATIO (10-20); Calcium,Total 8.8 mg/dL (8.5-10.1); Chloride 105 mmol/L (98-107); Cholesterol 146 mg/dL (200); Creatinine, Serum 1.16 mg/dL (0.70-1.30); EST Glomerular Filtration Rate 67 mL/min (>60); Est Glom Filt Rate - Afr Amer 82 mL/min (>60); Globulin 3.8 g/dL (2.2-4.2); Glucose 144 mg/dL (74-106); High Density Lipoprotein 48 mg/dL; Protein, Total 7.4 g/dL (6.4-8.2); Sodium Level 137 mmol/L (136-145); Triglycerides 102 mg/dL; Very Low Density Lipoprotein 20 mg/dL (5-40)
[2023-07-17 12:14] LABS: Microalbumin,Random Urine 13.6 mg/L (NO RANGE EST.); Microalbumin:Creatinine Ratio 6.4 mg/g CRE (<30 mg/g CRE)
[2023-07-17 12:16] LABS: Hemoglobin A1c 6.2 % (3.8-5.6)
== END | disposition home or self-care (01) ==
LOC: MFPLAB 08:14
PROVIDERS: PCP Family Medicine; Visit Provider Family Medicine
DX: E11.9 Type 2 diabetes mellitus without complications (principal)
CPT/HCPCS: 36415; 80053; 80061; 82043; 82570; 83036; 85025

== ENCOUNTER → 2023-11-20 | Outpatient (CLI) | payer SELFPAY ==
[2023-11-20 08:17] LABS: Bacteria 0 SEEN /hpf (None Seen); Mucous, Urine 0 SEEN /hpf (<or=2+); Red Blood Cells-Urine 0 SEEN /hpf (0-5); Squamous Epithelial Cells - UA 0 SEEN /hpf (0-5); White Blood Cells 0 SEEN /hpf (0-5)
[2023-11-20 10:11] LABS: Color, Urine Yellow (Yellow); Glucose, Dipstick Normal (Normal); Ketone-Dipstick Negative (Negative); Leukocyte Esterase-Dipstick Negative /ul (Negative); Nitrite-Dipstick Negative (Negative); Occult Blood-Urine Negative /ul (Negative); Protein-Dipstick Negative (Negative); Urine Bilirubin Dipstick Negative (Negative); Urine Clarity Clear (Clear); Urine Urobilinogen Normal (Normal)
[2023-11-20 10:26] LABS: Absolute Lymphocyte Count 1.72 X10^3/uL (0.83-4.51); Absolute Neutrophil Count 3.5 X10^3/uL (2.0-7.7); Basophil# 0.03 X10^3/uL; Basophil% 0.5 % (0-1); Eosinophil# 0.12 X10^3/uL; Hematocrit 44.3 % (40-54); Hemoglobin 14.8 g/dL (13.0-16.5); Lymphocyte # 1.72 X10^3/ul (0.83-4.51); Lymphocyte % 29.3 % (19-41); Mean Corp Hgb Conc 33.4 g/dL (32-36); Mean Corpuscular Hgb 30.1 pg (27.0-32.0); Mean Corpuscular Volume 90.2 fL (80-94); Mean Platelet Vol. 10.7 fl (6.2-12.0); Monocyte# 0.42 X10^3/uL; Monocyte% 7.2 % (0-10); NRBC Flagged by Analyzer 0 % (0-5); Neutrophil # 3.54 X10^3/uL (2.7-7.7); Neutrophil % 60.3 % (47-70); Platelet Count 195 K/mm3 (150-450); RBC Distribution Width CV 12.7 % (11.6-14.6); RBC Distribution Width SD 41.6 fl (35.1-43.9); Red Blood Count 4.91 M/mm3 (4.6-6.2); White Blood Count 5.9 K/mm3 (4.4-11.0)
[2023-11-20 10:43] LABS: ALB/GLOB Ratio 1.1 RATIO (0.9-2.4); AST(SGOT) 23 U/L (15-37); Alanine Aminotransfer ALT/SGPT 50 U/L (16-61); Albumin, Serum 3.6 g/dL (3.2-5.0); Alkaline Phosphatase 62 U/L (45-117); Anion Gap 6 (5-15); BUN 23 mg/dL (7-18); BUN/Creat Ratio 20.2 RATIO (10-20); Calcium,Total 8.6 mg/dL (8.5-10.1); Chloride 108 mmol/L (98-107); Cholesterol 151 mg/dL (200); Creatinine, Serum 1.14 mg/dL (0.70-1.30); EST Glomerular Filtration Rate 69 mL/min (>60); Est Glom Filt Rate - Afr Amer 83 mL/min (>60); Globulin 3.4 g/dL (2.2-4.2); Glucose 164 mg/dL (74-106); High Density Lipoprotein 49 mg/dL; Potassium 3.9 mmol/L (3.5-5.1); Sodium Level 140 mmol/L (136-145); Thyroid Stim Hormone (TSH) 1.91 uIU/mL (0.358-3.74); Triglycerides 100 mg/dL; Uric Acid 7.6 mg/dL (3.5-7.2); Very Low Density Lipoprotein 20 mg/dL (5-40)
[2023-11-21 12:44] LABS: Hemoglobin A1c 6.3 % (3.8-5.6)
== END | disposition home or self-care (01) ==
LOC: MFPLAB 08:14
PROVIDERS: PCP Family Medicine; Visit Provider Family Medicine
DX: E11.59 Type 2 diabetes mellitus with other circulatory complications (principal)
CPT/HCPCS: 36415; 80053; 80061; 81001; 83036; 84443; 84550; 85025

== ENCOUNTER → 2024-04-22 | Outpatient (CLI) | payer SELFPAY ==
[2024-04-22 08:19] LABS: Squamous Epithelial Cells - UA 0 SEEN /hpf (0-5)
[2024-04-22 10:08] LABS: Absolute Lymphocyte Count 1.85 X10^3/uL (0.83-4.51); Absolute Neutrophil Count 4.4 X10^3/uL (2.0-7.7); Basophil# 0.05 X10^3/uL; Basophil% 0.7 % (0-1); Eosinophil# 0.11 X10^3/uL; Eosinophils% 1.6 % (0-5); Hematocrit 42.9 % (40-54); Hemoglobin 14.4 g/dL (13.0-16.5); Lymphocyte # 1.85 X10^3/ul (0.83-4.51); Lymphocyte % 26.6 % (19-41); Mean Corp Hgb Conc 33.6 g/dL (32-36); Mean Corpuscular Hgb 30.1 pg (27.0-32.0); Mean Corpuscular Volume 89.7 fL (80-94); Mean Platelet Vol. 10.7 fl (6.2-12.0); Monocyte# 0.47 X10^3/uL; Monocyte% 6.8 % (0-10); NRBC Flagged by Analyzer 0 % (0-5); Neutrophil # 4.41 X10^3/uL (2.7-7.7); Neutrophil % 63.4 % (47-70); Platelet Count 218 K/mm3 (150-450); RBC Distribution Width CV 12.1 % (11.6-14.6); RBC Distribution Width SD 39.8 fl (35.1-43.9); Red Blood Count 4.78 M/mm3 (4.6-6.2)
[2024-04-22 10:21] LABS: Color, Urine Yellow (Yellow); Glucose, Dipstick Normal (Normal); Ketone-Dipstick Negative (Negative); Leukocyte Esterase-Dipstick 25 /ul (Negative); Nitrite-Dipstick Negative (Negative); Occult Blood-Urine 10 /ul (Negative); Protein-Dipstick 15 mg/dl (Negative); Urine Bilirubin Dipstick Negative (Negative); Urine Clarity Clear (Clear); Urine Urobilinogen Normal (Normal)
[2024-04-22 10:29] LABS: White Blood Cells 0-5 SEEN /hpf (0-5)
[2024-04-22 10:30] LABS: Bacteria 1+ /hpf (None Seen); Mucous, Urine 1+ /hpf (<or=2+); Red Blood Cells-Urine 0-5 SEEN /hpf (0-5)
[2024-04-22 11:04] LABS: ALB/GLOB Ratio 0.9 RATIO (0.9-2.4); AST(SGOT) 17 U/L (15-37); Alanine Aminotransfer ALT/SGPT 56 U/L (16-61); Albumin, Serum 3.3 g/dL (3.2-5.0); Alkaline Phosphatase 55 U/L (45-117); Anion Gap 7 (5-15); BUN 23 mg/dL (7-18); BUN/Creat Ratio 21.5 RATIO (10-20); Calcium,Total 8.9 mg/dL (8.5-10.1); Chloride 105 mmol/L (98-107); Cholesterol 141 mg/dL (200); Creatinine, Serum 1.07 mg/dL (0.70-1.30); EST Glomerular Filtration Rate 74 mL/min (>60); Est Glom Filt Rate - Afr Amer 89 mL/min (>60); Globulin 3.5 g/dL (2.2-4.2); Glucose 219 mg/dL (74-106); Hemoglobin A1c 7.3 % (3.8-5.6); High Density Lipoprotein 48 mg/dL; Potassium 3.8 mmol/L (3.5-5.1); Protein, Total 6.8 g/dL (6.4-8.2); Sodium Level 138 mmol/L (136-145); Triglycerides 111 mg/dL; Uric Acid 5.4 mg/dL (3.5-7.2); Very Low Density Lipoprotein 22 mg/dL (5-40)
== END | disposition home or self-care (01) ==
LOC: MFPLAB 08:16
PROVIDERS: PCP Family Medicine; Visit Provider Family Medicine
DX: E11.59 Type 2 diabetes mellitus with other circulatory complications (principal); M10.9 Gout, unspecified
CPT/HCPCS: 80053; 80061; 81001; 83036; 84550; 85025

== ENCOUNTER → 2024-11-18 | Outpatient (CLI) | payer OTHER, SELFPAY ==
[2024-11-18 08:23] LABS: Bacteria 0 SEEN /hpf (None Seen); Mucous, Urine 0 SEEN /hpf (<or=2+); Red Blood Cells-Urine 0 SEEN /hpf (0-5); Squamous Epithelial Cells - UA 0 SEEN /hpf (0-5); White Blood Cells 0 SEEN /hpf (0-5)
[2024-11-18 10:27] LABS: Absolute Lymphocyte Count 1.63 X10^3/uL (0.83-4.51); Absolute Neutrophil Count 4.2 X10^3/uL (2.0-7.7); Basophil# 0.03 X10^3/uL; Basophil% 0.5 % (0-1); Eosinophil# 0.09 X10^3/uL; Eosinophils% 1.4 % (0-5); Hematocrit 43.2 % (40-54); Hemoglobin 14.5 g/dL (13.0-16.5); Lymphocyte # 1.63 X10^3/ul (0.83-4.51); Lymphocyte % 25.3 % (19-41); Mean Corp Hgb Conc 33.6 g/dL (32-36); Mean Corpuscular Hgb 30.3 pg (27.0-32.0); Mean Corpuscular Volume 90.2 fL (80-94); Mean Platelet Vol. 10.8 fl (6.2-12.0); Monocyte# 0.47 X10^3/uL; Monocyte% 7.3 % (0-10); NRBC Flagged by Analyzer 0 % (0-5); Platelet Count 182 K/mm3 (150-450); RBC Distribution Width CV 12.4 % (11.6-14.6); RBC Distribution Width SD 41.4 fl (35.1-43.9); Red Blood Count 4.79 M/mm3 (4.6-6.2); White Blood Count 6.5 K/mm3 (4.4-11.0)
[2024-11-18 10:48] LABS: Color, Urine Yellow (Yellow); Glucose, Dipstick Normal (Normal); Ketone-Dipstick Negative (Negative); Leukocyte Esterase-Dipstick Negative /ul (Negative); Nitrite-Dipstick Negative (Negative); Occult Blood-Urine 10 /ul (Negative); Protein-Dipstick 15 mg/dl (Negative); Specific Gravity, Urine 1.025 (1.002-1.030); Urine Bilirubin Dipstick Negative (Negative); Urine Clarity Clear (Clear); Urine Urobilinogen Normal (Normal)
[2024-11-18 11:56] LABS: Microalbumin,Random Urine 14.3 mg/L (NO RANGE EST.)
[2024-11-18 12:01] LABS: Hemoglobin A1c 6.6 % (<=5.6)
[2024-11-18 15:04] LABS: ALB/GLOB Ratio 1.5 RATIO (0.9-2.4); AST(SGOT) 25 U/L (<=37); Alanine Aminotransfer ALT/SGPT 33 U/L (<=46); Albumin, Serum 4.1 g/dL (3.4-4.8); Alkaline Phosphatase 54 U/L (40-129); Anion Gap 12 (5-15); BUN 20 mg/dL (4-19); BUN/Creat Ratio 19.6 RATIO (10-20); Calcium,Total 9.2 mg/dL (7.6-11.0); Carbon Dioxide 24.5 mmol/L (21.0-32.0); Chloride 103 mmol/L (98-108); Cholesterol 123 mg/dL (<=200); Creatinine, Serum 1.03 mg/dL (0.70-1.20); EST Glomerular Filtration Rate 81 (>60); Globulin 2.7 g/dL (2.2-4.2); Glucose 139 mg/dL (70-99); High Density Lipoprotein 49 mg/dL; Low Density Lipoprotein Calc. 53 mg/dL; Potassium 3.8 mmol/L (3.3-5.1); Protein, Total 6.8 g/dL (5.9-8.4); Sodium Level 139 mmol/L (133-145); Total Bilirubin 0.83 mg/dL (0.00-1.30); Triglycerides 105 mg/dL; Uric Acid 7.8 mg/dL (3.5-7.2); Very Low Density Lipoprotein 21 mg/dL (5-40); cholesterol:hdl ratio screen 2.49
== END | disposition home or self-care (01) ==
LOC: MFPLAB 08:21
PROVIDERS: PCP Family Medicine; Referring Provider Family Medicine; Visit Provider Family Medicine
DX: M10.9 Gout, unspecified (principal); E11.8 Type 2 diabetes mellitus with unspecified complications
CPT/HCPCS: 80053; 80061; 81001; 82043; 83036; 84550; 85025

== ENCOUNTER → 2024-12-19 | Outpatient (CLI) | payer MEDICARE, SELFPAY ==
--- NOTE | 2024-12-19 07:58 | US_ITS ---
PROCEDURE: THYROID 12/19/2024 REASON FOR EXAM: NODULE, DUE FOR REPEAT 12/2024 TECHNIQUE: High-frequency thyroid ultrasound, including grayscale and color-flow images. REFERENCE LINKS: TI-RADS Chart: [email or web address] TI-RADS Calculator Tool with Reference Images: [email or web address] COMPARISON: Comparison study dated December 19, 2022. FINDINGS: Right thyroid lobe size: 4.2 cm x 1.9 cm x 2.5 cm Left thyroid lobe size: 4.8 cm x 1.7 cm 2.2 cm Isthmus: 0.7 cm Background parenchymal echotexture is heterogeneous Nodules: Once again, multiple hypoechoic solid nodules are seen in the right lobe. The largest is in the inferior pole and measures 1.7 cm x 1.2 cm 1.4 cm. This has increased in size as compared to prior study were previously measured 1.1 cm x 1.2 cm x 0.9 cm. Biopsy recommended. Several subcentimeter hypoechoic nodules are seen in the left lobe. The largest measures 1 cm x 1 cm x 0.7 cm. There has been no change. There is a 9 mm x 9 mm x 8 mm hypoechoic nodule in the isthmus. US/Thyroid IMPRESSION: Interval increase in size of the previously seen isoechoic solid nodule in the inferior pole of the right lobe of the thyroid measuring 1.7 cm x 1.2 cm x 1.4 cm. Biopsy recommended. RECOMMENDATION: Based on most suspicious nodule. Nodule size = largest diameter Only evaluate nodule if =>5 mm. Growth > 20% in 2 dimensions = worsening. Follow up to 4 nodules. Recommend biopsy for no more than 2 nodules. Reading Location: [id number]
== END | disposition home or self-care (01) ==
PROVIDERS: PCP Family Medicine; Referring Provider Family Medicine; Visit Provider Family Medicine
DX: E04.2 Nontoxic multinodular goiter (principal)
CPT/HCPCS: 76536

== ENCOUNTER → 2025-03-26 | Outpatient (CLI) | payer MEDICARE, SELFPAY ==
[2025-03-26 13:32] LABS: PSA,Total - Annual Screen 0.85 ng/mL (0.02-4.00)
== END | disposition home or self-care (01) ==
LOC: MFPLAB 08:48
PROVIDERS: PCP Family Medicine
DX: Z12.5 Encounter for screening for malignant neoplasm of prostate (principal)
CPT/HCPCS: 36415; 84153; G0103